=== PATIENT | female | born 1995 | race Caucasian/White ===

== ENCOUNTER → 2019-07-24 | Outpatient (CLI) | payer BC, OTHER ==
--- NOTE | 2019-07-24 08:50 | Diagnostic Imaging Report ---
PROCEDURE: US Thyroid. TECHNIQUE: Multiple real-time grayscale images were obtained of the thyroid in various projections. INDICATION: Thyromegaly. FINDINGS: Right lobe of the thyroid measures 5.3 x 1.5 x 1.5 cm and the left lobe measures 4.6 x 1.0 x 1.5 cm. Isthmus is 3 mm in thickness. There is a subcentimeter cyst in the left aspect of the isthmus measuring 6 mm x 4 mm x 2 mm. Small cyst in right aspect of the isthmus measures 9 mm x 4 mm x 1 mm. No dominant thyroid mass is detected. IMPRESSION: Subcentimeter hypoechoic nodules, perhaps cysts in the region of the isthmus, as described. No dominant thyroid mass is detected. Dictated by: Dictated on workstation # [id number]
== END ==
LOC: RAD 08:04
PROVIDERS: ATTEND Nurse Practitioner Family
DX: E04.2 Nontoxic multinodular goiter (principal)
CPT/HCPCS: 76536

== ENCOUNTER → 2020-04-02 | Outpatient (CLI) | payer OTHER ==
--- NOTE | 2020-04-02 12:56 | Diagnostic Imaging Report ---
PROCEDURE: US Thyroid. TECHNIQUE: Multiple real-time grayscale images were obtained of the thyroid in various projections. INDICATION: Thyromegaly. FINDINGS: The prior thyroid ultrasound exam of 07/24/2019 failed to show any enlargement of the thyroid gland. The right lobe measured 5.3 x 1.5 x 1.5 cm while the left lobe was estimated to be 4.6 x 1.0 x 1.5 cm (normal gland size 4-5 x 2 x 2 cm or less). There were subcentimeter cysts in both lobes. There was no solid mass identified. On this exam, there does not appear to have been any significant change. The thyroid gland is unchanged in size and the small hypoechoic lesion seen previously appears stable. No new abnormality has developed. IMPRESSION: The appearance of the thyroid gland is stable when compared to the prior exam. No new abnormality has developed. Dictated by: Dictated on workstation # [id number]
== END ==
LOC: RAD 10:59
PROVIDERS: ATTEND Nurse Practitioner Family
DX: E01.0 Iodine-deficiency related diffuse (endemic) goiter (principal)
CPT/HCPCS: 76536

== ENCOUNTER → 2021-05-22 | Outpatient (CLI) | payer OTHER ==
--- NOTE | 2021-05-22 09:34 | Diagnostic Imaging Report ---
PROCEDURE: US Thyroid. TECHNIQUE: Multiple real-time grayscale images were obtained of the thyroid in various projections. INDICATION: Hypothyroidism. Correlation is made with prior thyroid ultrasound from 04/02/2020. Right lobe thyroid measures 4.8 x 1.4 x 1.4 cm and left lobe measures 4.6 x 1.0 x 1.5 cm. Both lobes are fairly homogeneous in echotexture. There are 3 to 4 mm cyst in the isthmus. There is a small cyst in the lower pole left lobe as well approximately 4 mm in size. No dominant thyroid mass is detected. IMPRESSION: Thyroid cysts. The study is otherwise unremarkable. Dictated by: Dictated on workstation # [id number]
== END ==
LOC: RAD 08:20
PROVIDERS: ATTEND Nurse Practitioner Family
DX: E04.1 Nontoxic single thyroid nodule (principal)
CPT/HCPCS: 76536